=== PATIENT | male | born 1975 ===

== ENCOUNTER 2023-04-03 05:24 | Day surgery (SDC) | payer OTHER ==
[2023-03-23 11:51] LABS: URINE APPEARANCE Clear; URINE BILIRRUBIN Negative (NEGATIVE); URINE BLOOD Negative; URINE COLOR Yellow; URINE LEUKOCYTE Negative; URINE NITRATE Negative; URINE PROTEIN Negative (NEGATIVE)
[2023-03-23 11:53] LABS: HEMATOCRIT 43.2 % (39.0-48.0); HEMOGLOBIN 14.9 g/dL (13-16.00); MEAN CELL VOLUME 91.8 fL (80.0-100.00); MEAN CORPUSCULAR HEMOGLOBIN 31.6 pg (27.00-32.0); MEAN CORPUSCULAR HGB CONC 34.4 g/dl (32.0-36.0); PLATELET COUNT 338 K/uL (150-450); RED BLOOD COUNT 4.71 M/uL (4.00-6.00); RED CELL DISTRIBUTION WIDTH 13.1 % (11.5-14.5)
[2023-03-23 11:55] LABS: URINE EPITHELIAL CELLS 2.9 uL (0.0-38.8); URINE WBC 9.2 uL (0.0-23.2)
[2023-03-23 12:09] LABS: URINE BACTERIA 1.2 uL (0.0-1933); URINE GLUCOSE 250 MG/DL (NEGATIVE); URINE RBC 1.8 uL (0.0-20.8)
[2023-03-23 12:35] LABS: INR 1.16; PARTIAL THROMBOPLASTIN TIME 26.8 SECONDS (22.0-34.0)
[2023-03-23 12:40] LABS: ALBUMIN 4.3 gm/dL (3.4-5.0); BILIRUBIN TOTAL 1.45 mg/dL (0.3-1.2); CALCIUM 9.6 mg/dL (8.5-10.1); CREATININE SERUM 0.99 mg/dL (0.70-1.30); GFR 80.68; GLOBULINA 2.8 G/DL (2.4-3.5); POTASSIUM 4.95 mEq/L (3.5-5.1); TOTAL PROTEIN 7.1 gm/dL (6.4-8.2)
[~2023-04-03 05:24] MED LIST: BAYER THERAPY325 MG PO; BENICAR40 MG PO; CARAFATE1 GM PO; HORIZANT300 MG PO; HUMULIN R100 UNIT/1 SUBCUTANEO; LIPITOR20 MG PO; PROTONIX40 MG PO; TOUJEO SOL300 UNIT/1
== END 2023-04-03 17:35 | disposition home or self-care (01) ==
LOC: CIR.AMB 05:24
PROVIDERS: ATTEND Surgery
DX: K80.10 Calculus of gallbladder with chronic cholecystitis without obstruction (principal); K80.20 Calculus of gallbladder without cholecystitis without obstruction; E11.9 Type 2 diabetes mellitus without complications; E78.5 Hyperlipidemia, unspecified; I10 Essential (primary) hypertension; Z20.822 Contact with and (suspected) exposure to COVID-19